=== PATIENT | male | born 1985 | race Caucasian/White ===

== ENCOUNTER 2021-02-26 15:07 | Inpatient (IN) ==
[2021-02-26 16:52] LABS: Basophils # 0.1 K/mcL (0.0-0.2); Eosinophils # 0.2 K/mcL (0.0-0.6); Eosinophils % 2.9 %; Hematocrit 39.9 % (37.5-50.1); Hemoglobin 13.2 g/dL (12.9-16.9); Immature Granulocytes % 0.8 % (0-4); Lymphocytes % 18.4 %; Mean Corpuscular HGB Conc 33.1 g/dL (31.6-35.5); Mean Corpuscular Hemoglobin 32.9 pg (28.0-33.3); Mean Corpuscular Volume 99.5 fL (83.0-100.0); Mean Platelet Volume 9.1 fL (9.4-12.4); Monocytes # 0.7 K/mcL (0.0-1.3); Monocytes % 12.6 %; Neutrophils # 3.4 K/mcL (1.6-8.9); Platelet Count 275 K/mcL (140-400); Red Blood Count 4.01 M/mcL (4.19-5.50); Red Cell Distribution Width 14.2 % (11.5-14.5); Segmented Neutrophils % 64.3 %; White Blood Count 5.2 K/mcL (4.3-11.1)
[2021-02-26 17:11] LABS: Alanine Aminotransferase 25 Units/L (7-52); Albumin 3.9 g/dL (3.5-5.7); Albumin/Globulin Ratio 1.3 (1.1-2.2); Alkaline Phosphatase 84 Units/L (34-104); Aspartate Amino Transferase 32 Units/L (13-39); BUN/Creatinine Ratio 12 (6-26); Bilirubin,Total 0.2 mg/dL (0.3-1.0); Blood Urea Nitrogen 10 mg/dL (6-20); Calcium 9.3 mg/dL (8.6-10.3); Carbon Dioxide 26 mEq/L (23-29); Chloride 106 mEq/L (98-107); Globulin 3.1 g/dL (2.4-3.5); Glucose 86 mg/dL (70-105); Osmolality,Calculated 286 (280-300); Potassium 3.9 mEq/L (3.5-5.1); Sodium 139 mEq/L (136-145); eGFR For African Americans > 60 (> 60); eGFR For Non-African Americans > 60 (> 60)
[2021-02-26] MEDS ORDERED: Ondansetron 4 MG/2 ML VIAL IVP PRN (17:33)
[2021-02-26] MEDS ORDERED: Naloxone 0.4 MG/ML INJ IVP PRN (17:33)
[2021-02-26] MEDS ORDERED: *HR* OxyCODONE Immed Rel 5 MG TABLET PO PRN (17:33)
[2021-02-26] MEDS ORDERED: *HR* HYDROcodone/Acet 5/325 mg TABLET PO PRN (17:33)
[2021-02-26] MEDS ORDERED: Melatonin 3 MG TABLET PO PRN (17:33)
[2021-02-26] MEDS ORDERED: *HR* LORazepam 2 MG/ML VIAL IVP PRN ×2 (17:35)
[2021-02-26] MEDS ORDERED: *HR* LORazepam 2 MG/ML VIAL IVP STA (17:37)
[2021-02-26 17:45] LABS: Ethanol 87 mg/dL (Less than 10)
[2021-02-26 17:58] LABS: Lipase 26 Units/L (11-82)
[2021-02-26] MEDS: Ringers Solution, Lactated 1,000 ML IVC SCH (23:57)
[2021-02-27 02:57] LABS: Hematocrit 40.6 % (37.5-50.1); Hemoglobin 13.4 g/dL (12.9-16.9); Mean Corpuscular Hemoglobin 32.6 pg (28.0-33.3); Mean Corpuscular Volume 98.8 fL (83.0-100.0); Mean Platelet Volume 8.7 fL (9.4-12.4); Platelet Count 263 K/mcL (140-400); Red Blood Count 4.11 M/mcL (4.19-5.50); Red Cell Distribution Width 14.3 % (11.5-14.5); White Blood Count 5.1 K/mcL (4.3-11.1)
[2021-02-27 03:04] LABS: Prothrombin Time 12.1 Seconds (9.4-12.1)
[2021-02-27 03:09] LABS: Alanine Aminotransferase 29 Units/L (7-52); Albumin 3.6 g/dL (3.5-5.7); Albumin/Globulin Ratio 1.1 (1.1-2.2); Alkaline Phosphatase 80 Units/L (34-104); Aspartate Amino Transferase 43 Units/L (13-39); BUN/Creatinine Ratio 14 (6-26); Bilirubin,Total 0.4 mg/dL (0.3-1.0); Blood Urea Nitrogen 12 mg/dL (6-20); Carbon Dioxide 29 mEq/L (23-29); Chloride 104 mEq/L (98-107); Globulin 3.2 g/dL (2.4-3.5); Glucose 91 mg/dL (70-105); Magnesium 1.6 mg/dL (1.6-2.6); Osmolality,Calculated 283 (280-300); Phosphorous 3.2 mg/dL (2.7-4.5); Sodium 137 mEq/L (136-145); Total Protein 6.8 g/dL (6.4-8.9); eGFR For African Americans > 60 (> 60); eGFR For Non-African Americans > 60 (> 60)
[2021-02-27] MEDS: *HR* Enoxaparin 40 MG/0.4 ML SYRINGE SQ SCH (07:30)
[2021-02-27] MEDS: Nicotine 21 MG PATCH.TD24 TD SCH (08:44)
[2021-02-27] MEDS: Thiamine (B-1) 100 MG TABLET PO SCH (08:45)
[2021-02-27] MEDS: Folic Acid 1 MG TABLET PO SCH (08:45)
[2021-02-27] MEDS: Vitamin B Complex/Vit C/Vit E 1 EACH TABLET PO SCH (08:45)
[2021-02-27] MEDS: Ringers Solution, Lactated 1,000 ML IVC SCH (12:36)
[2021-02-27] MEDS: Acetaminophen 325 MG TABLET PO PRN (15:59)
[2021-02-27] MEDS ORDERED: Ibuprofen 600 MG TABLET PO ONE (20:17)
[2021-02-27] MEDS: *HR* LORazepam 2 MG/ML VIAL IVP PRN (21:25)
[2021-02-28 04:41] LABS: Hematocrit 42.4 % (37.5-50.1); Hemoglobin 13.8 g/dL (12.9-16.9); Mean Corpuscular HGB Conc 32.5 g/dL (31.6-35.5); Mean Corpuscular Hemoglobin 32.7 pg (28.0-33.3); Mean Corpuscular Volume 100.5 fL (83.0-100.0); Mean Platelet Volume 8.8 fL (9.4-12.4); Platelet Count 234 K/mcL (140-400); Red Blood Count 4.22 M/mcL (4.19-5.50); Red Cell Distribution Width 14.4 % (11.5-14.5); White Blood Count 5.8 K/mcL (4.3-11.1)
[2021-02-28 05:01] LABS: BUN/Creatinine Ratio 16 (6-26); Blood Urea Nitrogen 14 mg/dL (6-20); Carbon Dioxide 26 mEq/L (23-29); Chloride 106 mEq/L (98-107); Glucose 97 mg/dL (70-105); Osmolality,Calculated 286 (280-300); Potassium 4.6 mEq/L (3.5-5.1); Sodium 138 mEq/L (136-145); eGFR For African Americans > 60 (> 60); eGFR For Non-African Americans > 60 (> 60)
[2021-02-28] MEDS: *HR* Enoxaparin 40 MG/0.4 ML SYRINGE SQ SCH (06:57)
[2021-02-28] MEDS: Folic Acid 1 MG TABLET PO SCH (09:11)
[2021-02-28] MEDS: Vitamin B Complex/Vit C/Vit E 1 EACH TABLET PO SCH (09:11)
[2021-02-28] MEDS: Thiamine (B-1) 100 MG TABLET PO SCH (09:12)
[2021-02-28] MEDS: Nicotine 21 MG PATCH.TD24 TD SCH ×2 (09:14→11:06)
[2021-02-28 10:16] LABS: Amphetamine Screen,Urine Negative ng/mL (Cutoff=1000); Barbiturate Screen,Urine Negative ng/mL (Cutoff=200); Benzodiazepines Screen,Urine Positive ng/mL (Cutoff=200); Cannabinoid Screen,Urine Negative ng/mL (Cutoff = 50); Cocaine Screen,Urine Negative ng/mL (Cutoff= 300); Opiate Screen,Urine Negative ng/mL (Cutoff=300); Phencyclidine Screen,Urine Negative ng/mL (Cutoff=25)
[2021-02-28] MEDS: Acetaminophen 325 MG TABLET PO PRN (11:11)
[2021-02-28] MEDS: Nicotine 2 MG GUM BC PRN (11:15)
[2021-02-28] MEDS: *HR* LORazepam 2 MG/ML VIAL IVP PRN ×2 (16:16→20:33)
[2021-02-28] MEDS ORDERED: Nicotine 21 MG PATCH.TD24 TD SCH (17:00)
[2021-03-01] MEDS: *HR* Enoxaparin 40 MG/0.4 ML SYRINGE SQ SCH (05:55)
[2021-03-01] MEDS: Thiamine (B-1) 100 MG TABLET PO SCH (09:21)
[2021-03-01] MEDS: Vitamin B Complex/Vit C/Vit E 1 EACH TABLET PO SCH (09:21)
[2021-03-01] MEDS: Folic Acid 1 MG TABLET PO SCH (09:22)
[2021-03-01 11:03] VITALS: BP 105/66
[2021-03-01] MEDS: Nicotine 2 MG GUM BC PRN (13:32)
== END 2021-03-01 16:27 | DRG 897 ==
LOC: SUATTDRO → EMEROOARM 15:07 → 3ANU 15:07 → SUATTDRO 18:31 → 3ANU 19:30
PROVIDERS: ADMIT Internal Medicine; ATTEND Internal Medicine